=== PATIENT | female | born 1980 | race Caucasian/White ===

== ENCOUNTER 2024-03-22 23:18 | Emergency (ER) | payer SELFPAY ==
[~2024-03-22] VITALS: Ht 165.1 cm; Wt 69.0 kg
[2024-03-22 23:30] VITALS: BP 128/87; PULSE 95; RESP 16; TEMP 98.7; O2SAT 100
== END 2024-03-23 02:24 | disposition home or self-care (01) ==
LOC: ER 23:29
DX: F51.3 Sleepwalking [somnambulism] (principal); F31.9 Bipolar disorder, unspecified; F14.90 Cocaine use, unspecified, uncomplicated; F10.20 Alcohol dependence, uncomplicated; Y90.9 Presence of alcohol in blood, level not specified
CPT/HCPCS: 99283